=== PATIENT | female | born 1960 | race Two or more races ===

== ENCOUNTER 2018-03-29 21:12 | Emergency (ER) | payer MEDICAID ==
[~2018-03-29] VITALS: Ht 157.5 cm; Wt 63.5 kg
[2018-03-29 23:26] LABS: Basophils # (auto) 0 uL; Basophils % (auto) 0.6 % (0.0-2.0); Eosinophils # (auto) 0 uL; Eosinophils % (auto) 0.6 % (0.0-7.0); Hematocrit 25.5 % (36.0-46.0); Hemoglobin 8.8 g/dL (12.2-16.2); Lymphocytes # (auto) 0.3 uL; Lymphocytes % (auto) 5.1 % (10.0-50.0); Mean Corpuscular Hemoglobin 30.6 pg (28.0-32.0); Mean Corpuscular Hgb Conc. 34.4 g/dL (32.0-36.0); Monocytes # (auto) 0.5 uL; Monocytes % (auto) 7.1 % (0.0-12.0); Neutrophils # (auto) 5.5 uL; Neutrophils % (auto) 86.6 % (37.0-80.0); Platelet Count (auto) 323 10^3/uL (140-450); Red Blood Cells 2.87 10^6/uL (4.0-5.20); Red Cell Distribution Width 17.6 % (11.8-14.3); White Blood Cell 6.3 10^3/uL (4.4-10.8)
[2018-03-29 23:43] LABS: Calcium 8.1 mg/dL (8.5-10.1); Potassium 5.1 mmol/L (3.5-5.1)
[2018-03-29 23:46] LABS: Albumin 2.9 g/dL (3.4-5.0); BUN/Creatinine Ratio 18.9; Magnesium 1.3 mg/dL (1.6-2.6)
[2018-03-29 23:49] LABS: Bilirubin, Total 0.4 mg/dL (0.2-1.0); Total Protein 6.7 g/dL (6.4-8.2)
[2018-03-30] MEDS: MAGNESIUM SULFATE 1GM/100ML 100 ML IV SCH ×3 (00:36→03:25)
[2018-03-30 03:44] VITALS: BP 104/62
== END 2018-03-30 04:14 | disposition home or self-care (01) ==
LOC: ER 21:12
DX: E83.42 Hypomagnesemia (principal); Z94.4 Liver transplant status
CPT/HCPCS: 36415; 71045; 80053; 83735; 83880; 85025; 93005; 96365; 96366; 99285; J3475